=== PATIENT | male | born 1970 | race Caucasian/White ===

== ENCOUNTER 2020-03-13 11:19 | Outpatient (REF) | payer OTHER, SELFPAY ==
--- NOTE | 2020-03-13 11:24 | XR_ITS ---
EXAMINATION: XR CHEST CLINICAL INFORMATION: Covid 19 COMPARISON: None TECHNIQUE: 2 views of the chest were obtained. FINDINGS: No significant abnormality is noted involving the heart, lungs, mediastinum, bony thorax or soft tissues. XR/XR chest 2V IMPRESSION: No significant acute parenchymal disease appreciated.
== END 2020-03-13 11:20 | disposition home or self-care (01) ==
LOC: HO.HMGCX 11:19
PROVIDERS: PCP Nurse Practitioner Family; Visit Provider Nurse Practitioner Family
DX: R05 Cough (principal); U07.1 COVID-19
CPT/HCPCS: 71046

== ENCOUNTER 2020-03-18 14:58 | Outpatient (REF) | payer OTHER, SELFPAY ==
--- NOTE | ~2020-03-18 | XR_ITS ---
EXAMINATION: XR HIP, LEFT CLINICAL INFORMATION: Pain left hip. COMPARISON: None TECHNIQUE: Two views of the left hip. FINDINGS: Bones and soft tissues are normal. No fracture. Alignment is anatomic. Hip joint space is maintained. XR/XR hip LT min 2V IMPRESSION: Unremarkable left hip exam.
== END 2020-03-18 14:59 | disposition home or self-care (01) ==
LOC: HO.HMGCX 14:58
PROVIDERS: PCP Nurse Practitioner Family; Visit Provider Nurse Practitioner Family
DX: M25.552 Pain in left hip (principal)
CPT/HCPCS: 73502

== ENCOUNTER 2020-10-11 07:30 | Outpatient (REF) | payer OTHER, SELFPAY ==
[2020-10-11 11:28] LABS: Glucose Urine UA NEG (NEG); Leukocyte Esterase Urine NEG (NEG); Nitrite Urine NEG (NEG); PH 5.5 (5.0-8.0); Urine Blood NEG (NEG); Urine Ketones NEG (NEG); Urine Protein NEG (NEG-TRACE)
[2020-10-11 11:31] LABS: Appearance Urine CLEAR; Color Urine YELLOW
[2020-10-11 12:01] LABS: Alanine Aminotransferase 15 U/L (0-40); Albumin Level 4.1 g/dL (3.5-5.0); Alkaline Phosphatase 67 U/L (39-117); Anion Gap 13 (12-20); Aspartate Amino Transferase 13 U/L (5-37); Bilirubin Total 0.9 mg/dL (0.0-1.0); Blood Urea Nitrogen 20 mg/dL (9-16); Calcium 9.1 mg/dL (8.4-10.2); Carbon Dioxide 25 mmol/L (22-29); Chloride 106 mmol/L (96-108); Cholesterol 145 mg/dL; Estimated Glomerular Filt Rate > 60; Glucose Fasting 81 mg/dL (60-99); HDL Cholesterol 40 mg/dL; LDL Cholesterol Calculated 71 mg/dl; Potassium 3.7 mmol/L (3.3-5.1); Sodium 140 mmol/L (135-145); Total Protein 6.1 g/dL (6.5-8.0); Triglycerides 170 mg/dL
[2020-10-11 12:02] LABS: TSH reflex Free T4 2.32 uIU/mL (0.32-4.0)
== END 2020-10-11 07:31 | disposition home or self-care (01) ==
LOC: HO.HMGCLDS 07:30
PROVIDERS: PCP Nurse Practitioner Family; Visit Provider Nurse Practitioner Family
DX: N20.0 Calculus of kidney (principal); R10.9 Unspecified abdominal pain
CPT/HCPCS: 36415; 80053; 80061; 81003; 84443

== ENCOUNTER 2021-05-20 08:28 | Day surgery (SDC) | payer OTHER, SELFPAY ==
[2021-05-20 08:39] VITALS: BP 134/82; PULSE 79; RESP 16; TEMP 36.6; O2SAT 99; BMI 36.4
--- NOTE | 2021-05-20 09:56 | HO.ANESPROP2 ---
[facility] Active Problems Active Problems: All Active Problems (Updated 05/14/21 @ 13:45 by Lety Quiroz, RN) Cough in adult (Acute) Left hip pain (Acute) Kidney stones (Acute) Flank pain (Acute) Lower back pain (Acute) Physical exam (Acute) Screening PSA (prostate specific antigen) (Acute) HTN (hypertension) (Acute) COVID-19 (Acute) Past Medical History Medical History (Updated 05/14/21 @ 13:45 by Lety Quiroz RN) COVID-19 HTN (hypertension) Ulcerative colitis Family History Family history of problems with anesthesia: No Surgical History Surgical History (Updated 04/14/21 @ 10:51 by Lety Quiroz RN) H/O colonoscopy H/O medial meniscus repair of right knee History of Problems with Anesthesia: No Social History Social History Housing: House Alcohol intake: never Patient Tobacco Use Status: Never used Tobacco e-Cigarette/Vaping Use: Never Used Second Hand Smoke Exposure: No Use of substances other than those prescribed or required for medical reasons: No Advance Directives: No Advance Directives Information Provided: Yes Recently lost weight without trying: No service: No Current occupational status: employed Current occupation: [employer] Current occupational exposures/hazards: Yes Meds Allergies Allergy/AdvReac Type Severity Reaction Status Date / Time No Known Allergies Allergy Verified 05/14/21 13:39 Exam Exam Date and Time: May 20, 2021 0956 Height,Weight and Vital Signs: Height 5 ft 9 in Weight 112.037 kg Last Vital Signs Temp 97.8 F 05/20/21 08:39 Pulse 79 05/20/21 08:39 Resp 16 05/20/21 08:39 BP 134/82 05/20/21 08:39 Pulse Ox 99 05/20/21 08:39 Airway Mallampati Class: II TM Dist: >3cm Neck ROM: Full Assessment and Plan Assessment Anesthesia Assessment: Anesthesia Plan Discussed and Chart Reviewed Final Anesthetic Review Family History of Problems with Anesthesia: No History of Problems with Anesthesia: No NPO: Yes ASA Class: II Final Preanesthetic Review: No Changes in Pt Med Stat, Meds/Allgs Chart Reviewed, Consent Obtained/Reviewed and Anes Risks/Benef Reviewed Patient Risk: Low Procedure Risk: Low Anesthetic Plan Anesthetic Plan: MAC: Disposition: Standard PACU
[2021-05-20 10:38] VITALS: BP 106/77; PULSE 84; RESP 14; TEMP 36.6; O2SAT 96
--- NOTE | 2021-05-20 10:38 | MHC.SHP ---
Pre-Procedural Eval Section A Date of Service: 05/20/21 Section B Chief Complaint: Left sided colitis without complications Details of Present Illness: see h and p no changes Relevant Family History (Specify if Yes): No Relevant Social History: None Present Medications: see Short Stay Collaborative assessment Medical History: No relevant PMH Allergies: Allergies Allergy/AdvReac Type Severity Reaction Status Date / Time No Known Allergies Allergy Verified 05/14/21 13:39 Review of Systems Sugical H&P ROS: Negative: Constitution, Cardiovascular, Respiratory, Neurological, Psychiatric, Hem-Onc, Allergic/Immunologic, Gastrointestinal, Genitourinary, Musculoskeletal, Integumentary, Endocrine and Eyes/Ears/Nose/Throat Exam Surgical H&P Exam: Normal: HEENT, Normal: Heart, Normal: Lungs, Normal: Extremities, Normal: Abdomen, Normal: Skin and Normal: Neurological Plan I have reviewed the history and physical and performed a pertinent physical examination on my patient. No changes have occurred unless specified.
[2021-05-20 10:53] VITALS: BP 128/79; PULSE 81; RESP 18; TEMP 36.1; O2SAT 97
--- NOTE | 2021-05-20 11:15 | OP_ITS ---
SURGEON: Amari Anne MD INDICATIONS: Ulcerative colitis. PREOPERATIVE DIAGNOSIS: POSTOPERATIVE DIAGNOSIS: PROCEDURE PERFORMED: Colonoscopy to the terminal ileum with biopsy. ESTIMATED BLOOD LOSS: COMPLICATIONS: ANESTHESIA: ASSISTANTS: SPECIMENS: MEDICATIONS: Monitored anesthesia care. DESCRIPTION OF PROCEDURE: History and physical performed. The risks and benefits of the procedure were explained to the patient. Informed consent was obtained. The patient was placed in the left lateral decubitus position. A digital rectal exam was performed and was found to be normal. The Olympus pediatric videocolonoscope was introduced into the rectum and advanced to the cecum. The cecum was identified by transillumination, palpation, and identification of ileocecal valve. Examination was performed. The scope was removed. He tolerated the procedure well and was taken to recovery in stable condition. FINDINGS: The terminal ileum was normal. Visualized colonic mucosa was normal. Changes of colitis were noted in the left colon, mainly in the sigmoid, extending from the rectum to about 20 to 30 cm changes included superficial ulceration, erythema, edema, and loss of vascular pattern. Biopsies were obtained from throughout the colon approximately every 10 cm in all 4 quadrants. There was a rectal polyp measuring approximately 7 mm which were removed with a cold snare. Retroflexed examination was normal. IMPRESSION: Ulcerative colitis, colon polyp. RECOMMENDATION: Follow up the biopsy results. MD PANFILO Perea/NAVDEEPL / [id number]
== END 2021-05-20 11:20 | disposition home or self-care (01) ==
PROVIDERS: PCP Nurse Practitioner Family; Visit Provider Internal Medicine Gastroenterology
PROC: 0DJD8ZZ Inspection of Lower Intestinal Tract, Via Natural or Artificial Opening Endoscopic (ICD-10-PCS; CPT 45378; principal; 2021-05-20 09:30)
DX: K51.50 Left sided colitis without complications (principal); K62.1 Rectal polyp; K62.89 Other specified diseases of anus and rectum; I10 Essential (primary) hypertension; Z79.899 Other long term (current) drug therapy; Z87.11 Personal history of peptic ulcer disease; Z98.890 Other specified postprocedural states
CPT/HCPCS: 45380; 88305

== ENCOUNTER 2023-03-29 16:16 | Outpatient (AMB) | payer OTHER, SELFPAY ==
[2023-03-29 16:21] VITALS: BP 118/72; PULSE 72; O2SAT 99; BMI 37.4
--- NOTE | 2023-03-29 16:21 | A.OFFPC_ITS ---
Vital Signs 03/29/23 16:21 Height 5 ft 9 in Weight 253 lb 6 oz BMI 37.4 BP 118/72 Blood Pressure Location Lt brachial Position Sitting Pulse 72 Pulse Source Pulse Oximeter Pulse Oximetry (%) 99 Oxygen Delivery Method Room Air Intake Visit Reasons: Physical exam Intake Note: pt is here for physical exam, patient states there are no concerns. patient is due for colonoscopy every 5 years and last colonoscopy was 2018 Duplex Trimmer Required: No Allergies No Known Allergies Allergy (Verified 03/29/23 18:03) Medication List - Last Reconciled 03/29/23 by TRACI Akers lisinopril 5 mg PO DAILY 90 days omeprazole 20 mg PO DAILY ondansetron 8 mg PO Q12H PRN 15 days Tobacco use date assessed: 03/29/23 Dental Screening Dental Screen Date: 03/29/23 Did you have a dental visit in the last 12 months?: Yes Did you have a dental problem in the last 6 months where you did not have access to dental care?: No Was dental information given to patient?: Patient has dentist HPI Physical exam HPI Details Pt is here for a PE. Will order labs. Colon screen is up to date, sees GI on a regular basis due to UC. Due for PSA, will order. Denies dribbling with urination, weak stream, and frequent nocturia. He does have a Hx of low T, will recheck T levels. [facility] Medical History HTN (hypertension) Ulcerative colitis COVID-19 Surgical History H/O colonoscopy H/O medial meniscus repair of right knee Social History Housing: House Alcohol intake: never Patient Tobacco Use Status: Never used Tobacco e-Cigarette/Vaping Use: Never Used Second Hand Smoke Exposure: No service: No Current occupational status: employed Current occupation: [employer] Current occupational exposures/hazards: Yes Cognitive needs: No Hearing needs: No Vision needs: No Questionnaire PHQ-9 Over the last 2 weeks, how often have you been bothered by any of the following problems? 1. Little interest or pleasure in doing things: not at all 2. Feeling down, depressed, or hopeless: not at all 3. Trouble falling or staying asleep, or sleeping too much: not at all 4. Feeling tired or having little energy: not at all 5. Poor appetite or overeating: not at all 6. Feeling bad about yourself - or that you are a failure or have let yourself or your family down: not at all 7. Trouble concentrating on things, such as reading the newspaper or watching television: not at all 8. Moving or speaking so slowly that other people could have noticed. Or the opposite - being so fidgety or restless that you have been moving around a lot more than usual: not at all 9. Thoughts that you would be better off or of hurting yourself in some way: not at all Total score: 0 Depression Screening Interpretation: Negative Depression Screening Done: Yes 46166 - PHQ-9 Billing: Yes Source: Developed by Drs. Jacobo Fregoso, Arabella Yi, Shyam Colin and colleagues, with an educational penny from [employer]. Thrive Questionnaire Date Thrive assessed: 03/29/23 I am a: Patient What is your living situation today?: I have a steady place to live Within the past 12 months, did the food you bought not last and you didn't have the money to get more?: Never true Within the past 12 months, did you worry whether your food would run out before you got money to buy more?: Never true Do you have trouble paying for medicines?: No Do you have trouble getting transportation to medical appointments?: No Do you have trouble paying your heating and electricity bill?: No Do you have trouble taking care of your child, family member or friend?: No Do you have trouble with day-to-day activities such as bathing, preparing meals, shopping, managing finances, etc.?: No Are you currently unemployed and looking for a job?: No Are you interested in more education?: No Please select the resources that you would like help with: None Currently or been in a relationship where the following occur: no concerns reported THRIVE Score: 0 AUDIT C Alcohol Use Questionnaire (AUDIT-C) 1. How often do you have a drink containing alcohol?: Never 3. How often do you have six or more drinks on one occasion?: Never Total Score: 0 Score Reviewed/Action Taken: Yes ANDREA-7 AMB Questionnaire ANDREA-7 Date ANDREA - 7 assessed: 03/29/23 Feeling nervous, anxious, or on edge: 0 = Not at all Not being able to stop or control worryin = Not at all Worrying too much about different things: 0 = Not at all Trouble relaxin = Not at all Being so restless that it is hard to sit still: 0 = Not at all Becoming easily annoyed or irritable: 0 = Not at all Feeling afraid as if something awful might happen: 0 = Not at all Total ANDREA-7 score (0-4 normal; 5-9 mild; 10-14 moderate; 15-21 severe): 0 Source: Developed by Drs. Jacobo Fregoso, Arabella Yi, Shyam Colin and colleagues, with an educational penny from [employer]. ANDREA-7 Assessment Billing ANDREA-7 Assessment Tool: ANDREA-7 Assessment 90221 Review of Systems Const Denies chills and Denies fever(s) Eyes Denies blurry vision ENT Denies vertigo, Denies dizziness and Denies sore throat Card Denies chest pain at rest, Denies chest pain with activity, Denies diaphoresis, Denies dyspnea and Denies dyspnea on exertion Resp Denies cough, Denies dyspnea, Denies dyspnea on exertion and Denies wheezing GI Denies abdominal pain, Denies melena, Denies hematochezia, Denies constipation, Denies diarrhea and Denies loose stools Denies hematuria Musc Denies numbness and Denies tingling Skin/Breast Denies lesions Neuro Denies vertigo, Denies dizziness, Denies numbness and Denies tingling Psych Denies anxiety, Denies depression, Denies homicidal ideation, Denies suicidal ideation and Denies other (substance abuse) Aller/Immun Denies wheezing Physical exam (Primary Care) Vital Signs: Last Vital Signs Pulse 72 03/29/23 16:21 BP 118/72 03/29/23 16:21 Pulse Ox 99 03/29/23 16:21 Oxygen Delivery Method Room Air 03/29/23 16:21 BMI result Body Mass Index 37.4 Tobacco/Smoking Status: Tobacco use Status Tobacco use date assessed 03/29/23 03/29/23 16:28 Patient Tobacco Use Status Never used Tobacco 03/29/23 16:28 e-Cigarette/Vaping Use Never Used 03/29/23 16:28 PHQ-9: PHQ-9 Score PHQ-9: Total score 0 03/29/23 17:06 Depression Screening Interpretation: Negative Thrive Assessment: Date of Thrive Assessment Date Thrive assessed 03/29/23 03/29/23 16:28 Currently or been in a relationship where the following occur: no concerns reported Const General: cooperative Nutritional Appearance: well nourished Orientation/consciousness: patient oriented x3 HENMT Head: Yes normal to inspection, Yes normocephalic and Yes atraumatic Ears: TM's normal bilaterally Eyes General: appearance normal, both eyes and all related structures Alignment and Position: alignment normal and position normal Neck Neck: Yes normal visual inspection and Yes no lymphadenopathy Thyroid: Thyroid normal Resp Effort & Inspection: normal respiratory effort Auscultation: clear to auscultation bilaterally Cardio Rate: regular rate Rhythm: regular rhythm Heart sounds: S1 normal heart sound present, S2 normal heart sound present and no murmurs GI Other: small umbilical hernia noted Palpation (GI): Soft to palpation and nontender Auscultation: normal bowel sounds Male General Exam: Yes normal external exam Penis: normal penis Scrotum: scrotum normal, testes descended bilaterally and no inguinal hernias Testes: no testicular mass Skin Rashes: no rashes Neuro General: patient oriented x3, moves all extremities, no focal motor deficits and deep tendon reflexes 2+ bilaterally Romberg Test: Negative Psych Appearance: grossly normal Mental Status: mental status grossly normal Speech and movement: Normal speech and movement present Affect: normal affect Attitude: cooperative Thought process: Normal thought process present Thought content: Normal thought content present Insight: Good insight present (Psych) Judgement: Good judgement present (Psych) Assessment and Plan Assessment & Plan (1) Physical exam: Code(s): Z00.00 - Encounter for general adult medical examination without abnormal findings Plan: labs (2) Screening PSA (prostate specific antigen): Code(s): Z12.5 - Encounter for screening for malignant neoplasm of prostate Plan: lab (3) Low testosterone: Code(s): R79.89 - Other specified abnormal findings of blood chemistry Plan: lab ordered Orders: Orders TSH reflex Free T4 Today Z00.00 - Encounter for general adult medical examination without abnormal findings UA CC w/rflx Micro + Cult Today Z00.00 - Encounter for general adult medical examination without abnormal findings Prostate Specific Antigen Scr Today Z12.5 - Encounter for screening for malignant neoplasm of prostate Vitamin D 25-OH Total Today Z00.00 - Encounter for general adult medical examination without abnormal findings Complete Blood Count Auto Diff Today Z00.00 - Encounter for general adult medical examination without abnormal findings Comprehensive [place]. Panel Fast Today Z00.00 - Encounter for general adult medical examination without abnormal findings Lipid Panel Today Z00.00 - Encounter for general adult medical examination without abnormal findings Testosterone, Free/Total Today R79.89 - Other specified abnormal findings of blood chemistry Medications: New ondansetron 8 mg PO Q12H PRN 30 tabs 0RF nausea and vomiting 15 days Coding Level of Care Code Est Pt Prev Care 40-64y(63140) Diagnoses Physical exam Z00.00 Screening PSA (prostate specific antigen) Z12.5 Low testosterone R79.89 Additional Codes ANDREA-7 Assessment Billing - ANDREA-7 Assessment Tool: ANDREA-7 Assessment 76206 ([id number])
== END 2023-03-29 17:15 | disposition home or self-care (01) ==
PROVIDERS: PCP Nurse Practitioner Family; Visit Provider Nurse Practitioner Family
DX: Z00.00 Encounter for general adult medical examination without abnormal findings (principal); Z12.5 Encounter for screening for malignant neoplasm of prostate; R79.89 Other specified abnormal findings of blood chemistry
CPT/HCPCS: 99396

== ENCOUNTER 2024-04-25 07:35 | Day surgery (SDC) | payer OTHER, SELFPAY ==
--- OUTSIDE RECORDS SUMMARY | 2024-04-12 13:42 | XMS_ITS | Clinical Summary ---
Author Organization [facility] lin Address [address] [place] [address] Care Team Providers Care Alumni Coordinator Name Role Phone No, Pcp HHA Primary Care Provider Unavailabl e Allergies No known active allergies Medications No known medications Social History Tobacco Use Types Packs/Day Years Used Date Smoking Tobacco: Never Sex and Gender Information Value Date Recorded Sex Assigned at Not on file Legal Sex Male 10:59 AM EDT Gender Identity Not on file Sexual Orientation Not on file Last Filed Vital Signs Vital Sign Reading Time Taken Comments Blood Pressure 120/90 09/15/2015 1:05 PM EDT Pulse 98 09/15/2015 1:05 PM EDT Temperature 37.2 ??C (98.9 ??F) 09/15/2015 1:05 PM ED T Respiratory Rate 14 09/15/2015 1:05 PM EDT Oxygen Saturation 98% 09/15/2015 1:05 PM EDT Inhaled Oxygen Concentration - - Weight 118 kg (260 lb) 09/15/2015 1:05 PM EDT Height 175.3 cm (5' 9 ) 09/15/2015 1:05 PM EDT Body Mass Index 38.4 09/15/2015 1:05 PM EDT Plan of Treatment Health Maintenance Due Date Last Done Comments Colorectal Cancer: COLONOSCO PY Screening every 10 yrs (or Modifier) 1970 Depression: Screening Annual ly using PHQ-2/9 in Adults 18 yrs or above (or HM Modifier)([facility]) 1988 Hepatitis C Virus Infection in Adolescents and Adults: Screening (or Modifier) ([facility]) 1988 SDOH Screening Reminder: Marta santiago for all adults ([facility]) 1988 Tobacco Smoking Cessation: i n Adults excluding Women: Behavioral and Pharmacotherapy Interventions ([facility]) 1988 DTaP/Tdap/Td Vaccines ([facility]) (1 - Tdap) 1989 Lipid Screening: Every 5 yrs for Men aged 35+ (or HM Modifier) ([facility]) 2006 Colorectal Cancer Screening 45 -75 Yrs (or HM Modifier) 09/09/2015 Colorectal Cancer: FLEXIBLE SIGMOIDOSCOPY Screening every 5 yrs 09/09/2015 Colorectal Cancer: Fecal Immunochemical Test (FIT) Annually [facility] 09/09/2015 Colorectal Cancer: High-sens itivity gFOBT Screening Annually [facility] 09/09/2015 Colorectal Cancer: Stool Col oguard Screening every 3 yrs 09/09/2015 Colorectal Cancer:CT Colonog tom Screening every 5 yrs 09/09/2015 Zoster/Shingles Vaccine Seri es Screening: Adults aged 18+ yrs (or HM Modifiers)([facility] ) (1 of 2) 2020 Flu Vaccination: Yearly for ages 18mos through 64 years (or Modifier)([facility] ) 09/09/2023 COVID-19 Vaccine Screening: Initial Series and Booster Status ([facility]) (2023- season) 2023 Pneumococcal Vaccination Scr eening: Pts 0-19 & 19-64 yrs of age ([facility] ) Aged Out No longer eligible based on patient's age to complete this topic Medical Devices Not on file Insurance Care Teams Alumni Coordinator Relationship Specialty Start Date End Date No, Pcp, HHA N/A Do not use PCP - General 09/15/15
--- OUTSIDE RECORDS SUMMARY | 2024-04-12 13:42 | XMS_ITS ---
Author Organization [facility] Address [address] [place] [phone] Care Team Providers Care Machine I Trimmer Name Role Phone [place] Primary Care Provider Amari Chun Jr REASON FOR VISIT colonoscopy Encounters Encounter Location Date Provider Diagnosis [facility] [address] [facility] [address] [place] [phone] 02/24/2024 Amari Anne Jr Plan Of Treatment Next Appt Details Provider Name:Amari yepez Jr, 04/25/2024 09:00:00 AM, [address] [place] [address] , [place], [place], [phone], Progress Notes * FLAVIA MOSELEY ADOB: [birth year] (53 yo M)Acc No.[id number]:02/24/2024 Patient:?FLAVIA MOSELEY :1970???Age:53 Y???Sex:Male Address:[address], [place] [address] * true * Date:? Generated for Carly cuellar/Margarita/eTransmitting on:?04/12/2024 01:41 PM EST
--- OUTSIDE RECORDS SUMMARY | 2024-04-12 13:42 | XMS_ITS ---
[facility] Address [address] [place] [address] Care Team Providers Care Service Tech Name Role Phone NEW BOOTH Primary Care Provider Amari Chun Jr Unavailable [phone] Allergies No Known Allergies REASON FOR VISIT Patient presents today for ulcerative colitis Medications Medication SIG (Take, Route, Frequency, Duration) Notes Start Date End Date Status Lisinopril 5 MG Oral for 90 Ac tive MiraLax (colon prep) 17 GM/SCOOP mixed with Gatorade or Crystal Light Orally begin at 5:00 p.m. the day before the procedure for 1 day 07/29/2023 Active Mesalamine 1000 mg _insert 1 SUPPOSITOR Y RECTALLY ONCE DAILY AT BEDTIME for 30 days Active Social History Alcohol Screen Question Answer Notes Did you have a drink contain ing alcohol in the past year? Yes How often did you have a dri nk containing alcohol in the past year? 2 to 4 times a month (2 points) How many drinks did you have on a typical day when you were drinking in the past year? 3 or 4 drinks (1 point) How often did you have 6 or more drinks on one occasion in the past year? Never (0 point) Points 3 Interpretation Negative Vital Signs Temperature 97.5 degrees Fahrenheit 07/29/19 24 Blood pressure systolic 000 mm Hg 07/29/19 24 Blood pressure diastolic null mm Hg 024 Height 69 in 07/29/2023 Weight 254 lb 2 oz lbs 07/29/2023 BMI 37.52 kg/m2 07/29/2023 Encounters Encounter Location Date Provider Diagnosis [facility] [address] [place] [address] 07/29/2023 Amari Anne Jr Ulcerative colitis, left sided, without complications K51.50 Assessments Encounter Date Diagnosis (ICD Code) Assessment Notes Treatment Notes Treatment Clinical Notes Section Notes 07/29/2023 Ulcerative colitis, left sided, without complications (ICD-10 - K51.50) We discussed ulcerative colitis today. We recommended he continue mesalamine suppositories. He will be scheduled for followup colonoscopy in February or March. [facility] paperwork will be completed. Plan Of Treatment Medication Medication Name Sig Start Date Stop Date Notes MiraLax (colon prep) 17 GM/SCOOP mixed with Gatorade or Crystal Light Orally begin at 5:00 p.m. the day before the procedure for 1 day 07/29/2023 Future Test Test Name Order Date COLONOSCOPY 07/29/2023 Next Appt Details Follow Up: 1 Year, Reason: Provider Name:Amari yepez Jr, 04/25/2024 09:00:00 AM, [address] [place] [address] , [place], [place], [phone], Progress Notes * JOHNATHAN MOSELEY ADOB: 1 (52 yo M)Acc No.[id number]:07/29/2023 Progress Notes Patient:?JOHNATHAN MOSELEY Provider:?Amari Anne MD :1970???Age:52 Y???Sex:Male Nithin e:07/29/2023 Address:[address] [place], [place] [id number] Pcp:NEW BOOTH Subjective: * Chief Complaints: * ???1. Patient presents today for ulcerative colitis. * HPI: ???New symptom(s):? Johnathan is a pleasant 52-year-old man seen today in followup of ulcerative colitis, left-sided. We saw him last, he's been doing well. He has no complaints of rectal bleeding. He continues on Canasa suppositories at night. Bowel movements are generally occurring once per day. He last underwent colonoscopy in 2021 which showed rectosigmoid colitis and a hyperplastic colon polyp. We reviewed this today. He did require a course of prednisone following the procedure but has done well since. He is scheduled for hip replacement later this month. * Medical History:?ulcerative colitis, diagnosed 1995, left-sided disease, current therapy Canasa suppositories, Hx of peptic ulcer disease, Colonoscopy 05/20/21 left-sided disease, followup in 2-3 years., Traumatic fingertip amputation, Osteoarthritis. * Surgical History:?cyst remov al on stomach , Knee surgery right 2016, new hip left side hip replacement in August 05, 2023 . * Family History:?Father: jesus lozoya, diagnosed with HTN (hypertension).?Mother: alive.? no known hx of colon cancer, polyps or liver ds. * Social History:?Tobacco Use:?Tobacco Use/Smoking?Are you a: nonsmoker.?Drugs/Alcohol:?Alcohol Screen?Did you have a drink containing alcohol in the past year??Yes,?How often did you have a drink containing alcohol in the past year??2 to 4 times a month (2 points),?How many drinks did you have on a typical day when you were drinking in the past year??3 or 4 drinks (1 point),?How often did you have 6 or more drinks on one occasion in the past year??Never (0 point),?Points?3,?Interpretation?Negative.?Miscellaneous:?Marital status: . Occupation: general maintanence/officer. * Medications:?Taking Mesalami ne 1000 mg Suppository _insert 1 SUPPOSITORY RECTALLY ONCE DAILY AT BEDTIME , Taking Lisinopril 5 MG Tablet Oral , Discontinued MiraLax (colon prep) 17 GM/SCOOP Powder mixed with Gatorade or Crystal Light Orally begin at 5:00 p.m. the day before the procedure, Discontinued predniSONE 10 MG Tablet 4 tablets daily for 7 days then taper by 10 mg weekly. Orally , Discontinued Omeprazole 20 MG Tablet Delayed Release 1 tablet 30 minutes before morning meal Orally Once a day, Medication List reviewed and reconciled with the patient * Allergies:?N.K.D.A. Objective: * Vitals:?Wt: 254 lb 2 oz, Ht: 69 in, BMI:37.52 Index, BP: 000//00, Temp: 97.5. * Examination: ???General Examination: ???On examination today, he appears well, skin is anicteric. Lungs are clear. Heart shows regular rate. Abdomen is soft without focal mass or tenderness. Extremities are without edema. Assessment: * Assessment: 1.?Ulcerative colitis, left sided, without complications - K51.50 (Primary)? We discussed ulcerative coli tis today. We recommended he continue mesalamine suppositories. He will be scheduled for followup colonoscopy in February or March. [facility] paperwork will be completed. Plan: * Treatment: * Procedure Codes:?3017F COLOR ECTAL CA SCREEN DOC REV, G9903 Pt scrn tbco id as non user, G9744 PATIENT NOT ELIG D/T ACTIVE DX HTN * Preventive Medicine:? ??Counseling:?Care goal follow-up plan:?Above Normal BMI Follow-up?Giving encouragement to exercise,?BMI management provided?Yes.? * Follow Up:?1 Year * * Sign off status: Completed true * Provider:?Amari Anne MD Date:?0 07/29/2023 Generated for [facility] polo/Margarita/eTransmitting on:?04/12/2024 01:42 PM EST History and Physical Notes * HPI (History of Present Illness) Category Sub-Category Detail Notes Category Not es New symptom(s) Johnathan is a p leasant 52-year-old man seen today in followup of ulcerative colitis, left-sided. We saw him last, he's been doing well. He has no complaints of rectal bleeding. He continues on Canasa suppositories at night. Bowel movements are generally occurring once per day. He last underwent colonoscopy in 2021 which showed rectosigmoid colitis and a hyperplastic colon polyp. We reviewed this today. He did require a course of prednisone following the procedure but has done well since. He is scheduled for hip replacement later this month. Examination Category Sub-Category Detail Notes Category Not es General Examination On exami nation today, he appears well, skin is anicteric. Lungs are clear. Heart shows regular rate. Abdomen is soft without focal mass or tenderness. Extremities are without edema.
--- OUTSIDE RECORDS SUMMARY | 2024-04-12 13:42 | XMS_ITS ---
Author Organization [facility] Address [address] [place] [phone] Care Team Providers Care Chef Name Role Phone ENW BOOTH Primary Care Provider Amari Chun Jr REASON FOR VISIT ulcerative colitis Encounters Encounter Location Date Provider Diagnosis [facility] Outpatient [address] [place] [phone] 03/28/2024 Amari Anne Jr Plan Of Treatment Next Appt Details Provider Name:Amari yepez Jr, 04/25/2024 09:00:00 AM, [address] [place] [address] , [place], [place], [phone], Progress Notes * FLAVIA MOSELEY ADOB: 1 (53 yo M)Acc No.[id number]:03/28/2024 COLON WITH MAC Patient:?FLAVIA MOSELEY Provider:?Amari Anne MD :1970???Age:53 Y???Sex:Male Nithin e:03/28/2024 Address:[address] [facility] [id number] Pcp:NEW BOOTH Subjective: * Chief Complaints: * ???1. Ulcerative colitis. * Medical History:? Objective: * Vitals:? Assessment: Plan: * Treatment: * * The named appointment provid er may or may not be the originator of this progress note, and it is not deemed complete until electronically signed by the appointment provider. Sign off status: Pending * Provider:?Amari Anne MD Date:?0 03/28/2024 Generated for Carly cuellar/Margarita/Anthony on:?04/12/2024 01:42 PM EST
--- OUTSIDE RECORDS SUMMARY | 2024-04-12 13:42 | XMS_ITS | Patient Health Record ---
Author Organization [facility] Address [address] [place] [address] Care Team Providers Care Casino Porter Name Role Phone NEW BOOTH Primary Care Provider Amari Chun Jr Unavailable Allergies No Known Allergies Reason For Referral No Information Medications Medication SIG (Take, Route, Frequency, Duration) Notes Start Date End Date Status Lisinopril 5 MG Oral for 90 Ac tive MiraLax (colon prep) 17 GM/SCOOP mixed with Gatorade or Crystal Light Orally begin at 5:00 p.m. the day before the procedure for 1 day 07/29/2023 Active Mesalamine 1000 MG _INSERT 1 SUPPOSITOR Y RECTALLY ONCE DAILY AT BEDTIME for 90 Active Immunizations Vaccine Route Administration Date Status Comme nts Influenza Unknown 12/01/2022 Administered Influenza Unknown 07/27/2019 Refused Social History Alcohol Screen Question Answer Notes [...] Never (0 point) Points 3 Interpretation Negative Problems Problem Type SNOMED Code ICD Code Onset Dates Problem Status W/U Status Risk Notes Problem [id number] Ulcerative colitis, left sided, without complications (K51.50) Active confirmed Vital Signs Temperature 97.5 degrees Fahrenheit 07/29/2023 Blood pressure diastolic null mm Hg 07/29/2023 Height 69 in 07/29/2023 Blood pressure systolic 000 mm Hg 07/29/2023 Weight 254 lb 2 oz lbs 07/29/2023 BMI 37.52 kg/m2 07/29/2023 Encounters Encounter Location Date Provider Diagnosis [facility] [address] [place] [phone] 07/29/2023 Amari Anne Jr Ulcerative colitis, left sided, without complications K51.50 [facility] [address] [place] [phone] 04/23/2023 Amari Anne Jr [facility] [address] [place] [phone] 02/24/2024 Amari Anne Jr Assessments Encounter Date Diagnosis (ICD Code) Assessment Notes Treatment Notes Treatment Clinical Notes Section Notes 07/29/2023 Ulcerative colitis, left sided, without complications (ICD-10 - K51.50) We discussed ulcerative colitis today. We recommended he continue mesalamine suppositories. He will be scheduled for followup colonoscopy in February or March. [facility] paperwork will be completed. Plan Of Treatment Future Test Test Name Order Date COLONOSCOPY 11/10/2013 COLONOSCOPY 10/21/2017 COLONOSCOPY 10/21/2020 COLONOSCOPY 07/29/2023 Next Appt Details Provider Name:Amari yepez , 04/25/2024 09:00:00 AM, [address] [place] [address] , [place], [place], [phone], Insurance Providers Payer Name Payer Address Payer Phone Subscriber Number Group Number Insured Name Patient Relationship to Insured Coverage Start Date Coverage End Date [facility] [address] [place] [phone] [id number] MOSELEY, FLAVIA Self - patient is the insured Medical (General) History Medical History History ICD Code ulcerative colitis, diagnose d 1995, left-sided disease, current therapy Canasa suppositories hx of peptic ulcer disease colonoscopy 05/20/21 left-sided disease, followup in 2-3 years. Traumatic fingertip amputation Osteoarthritis Surgical History Surgery Date(Month/Year) cyst removal on stomach Knee surgery right 2017 new hip left side hip replacement in Jul
--- OUTSIDE RECORDS SUMMARY | 2024-04-12 13:42 | XMS_ITS | Patient Health Record ---
Author Organization [facility] Address [address] [place] [address] Care Team Providers Care Supervisor Bleach Plant Name Role Phone Easton Zaman Primary Care Provider Unav ailable Arpita Souza Unavailable [phone] Allergies No Known Allergies Reason For Referral No Information Medications Medication SIG (Take, Route, Fr equency, Duration) Notes Start Date End Date Status Medrol 4 MG as directed Orally 10/28/2020 Not-Taking Mesalamine Not-Takin g Immunizations Vaccine Route Administration Date Status Comme nts COVID-19 Moderna Vaccine Unknown 06/20/2020 Administere d 05/13/20 Social History Tobacco Use: Social History Observation Description Date Details (start date - stop date) Never Smoker NA - NA Tobacco Use/Smoking Question Answer Notes Are you a: nonsmoker Additional Findings: Tobacco Non-User Aggressive non-smoker Alcohol Screen Question Answer Notes Did you have a drink containing alcohol in the p ast year? No Points 0 Interpretation Negative Tobacco use other than smoking: Question Answer Notes Are you an other tobacco user? 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 Plan Of Treatment Pending Test Test Name Order Date X ray : Foot, right 3V 10/28/2020 Insurance Providers Payer Name Payer Address Payer Phone Subscriber Number Group Number Insured Name Patient Relationship to Insured Coverage Start Date Coverage End Date [facility] [address] [place] [address] [phone] [id number] WilkinsJohnathan stinson Self - patient is the insured Medical (General) History Medical History History ICD Code Arthritis Back,Hip,and Knee pain Crohns disease Psoriasis Sinus conditions Surgical History Surgery Date(Month/Year) knee surgery, right
[2024-04-21 09:30] VITALS: BMI 37.5
[2024-04-25 08:23] VITALS: BMI 34.2
[2024-04-25 08:24] VITALS: BP 124/80; PULSE 67; RESP 16; TEMP 36.3; O2SAT 98
--- NOTE | 2024-04-25 08:49 | HO.ANESPROP2 ---
[facility] Active Problems Active Problems: All Active Problems Encounter for blood typing (Acute) Low testosterone (Acute) Bronchitis (Acute) Chronic hip pain (Acute) HTN (hypertension) (Acute) Screening PSA (prostate specific antigen) (Acute) Physical exam (Acute) Lower back pain (Acute) Flank pain (Acute) Kidney stones (Acute) Left hip pain (Acute) Cough in adult (Acute) COVID-19 (Acute) Past Medical History Medical History Osteoarthritis Traumatic amputation of fingertip Peptic ulcer HTN (hypertension) Ulcerative colitis COVID-19 Family History Family history of problems with anesthesia: No Surgical History Surgical History History of total left hip replacement H/O colonoscopy H/O medial meniscus repair of right knee History of Problems with Anesthesia: No Social History Social History Housing: House Alcohol intake: never Patient Tobacco Use Status: Never used Tobacco e-Cigarette/Vaping Use: Never Used Second Hand Smoke Exposure: No service: No Current occupational status: employed Current occupation: [employer] Current occupational exposures/hazards: Yes Cognitive needs: No Hearing needs: No Vision needs: No Meds Allergies Allergy/AdvReac Type Severity Reaction Status Date / Time No Known Allergies Allergy Verified 03/29/23 18:03 Active Medications: Current Medications Lactated Ringer's (Lr) 1,000 mls @ 100 mls/hr IVCONT .Q10H LISA Home Medications ?Medication ?Instructions ?Recorded ?Confirmed ?Last Taken ?Type mesalamine 1,000 mg rectal 1,000 mg MD BEDTIME 04/21/24 04/25/24 Unknown History suppository omeprazole 20 mg PO PRN reflux 04/25/24 Unknown History Exam Height,Weight and Vital Signs: Height 5 ft 9 in Weight 105.2 kg Last Vital Signs Temp 97.4 F 04/25/24 08:24 Pulse 67 04/25/24 08:24 Resp 16 04/25/24 08:24 BP 124/80 04/25/24 08:24 Pulse Ox 98 04/25/24 08:24 O2 Del Method Room Air 04/25/24 08:24 Airway Mallampati Class: III TM Dist: >3cm Neck ROM: Full Loose/Missing/Broken Teeth: No Heart: RRR Lungs: CTA Assessment and Plan Assessment Anesthesia Assessment: Anesthesia Plan Discussed and Chart Reviewed Final Anesthetic Review Family History of Problems with Anesthesia: No History of Problems with Anesthesia: No NPO: Yes ASA Class: II Final Preanesthetic Review: Meds/Allgs Chart Reviewed, Consent Obtained/Reviewed and Anes Risks/Benef Reviewed Patient Risk: Low Procedure Risk: Low Anesthetic Plan Anesthetic Plan: MAC: Disposition: Standard PACU
--- NOTE | 2024-04-25 08:58 | MHC.SHP ---
Pre-Procedural Eval Section A - 24 Hr Update-Section A only Date of Service: 04/25/24 Section B - Complete if H&P > 30 days Chief Complaint: Left sided colitis without complications Details of Present Illness: see H&P no changes Relevant Family History (Specify if Yes): No Relevant Social History: None Present Medications: see Short Stay Collaborative assessment Medical History: No relevant PMH History of Previous Operations: No relevant previous surgery Allergies: Allergies Allergy/AdvReac Type Severity Reaction Status Date / Time No Known Allergies Allergy Verified 03/29/23 18:03 Review of Systems Sugical H&P ROS: Negative: Constitution, Cardiovascular, Respiratory, Neurological, Psychiatric, Hem-Onc, Allergic/Immunologic, Gastrointestinal, Genitourinary, Musculoskeletal, Integumentary, Endocrine and Eyes/Ears/Nose/Throat Exam Surgical H&P Exam: Normal: HEENT, Normal: Heart, Normal: Lungs, Normal: Extremities, Normal: Abdomen, Normal: Skin and Normal: Neurological Plan Diagnosis/Plan: Unchanged I have reviewed the history and physical and performed a pertinent physical examination on my patient. No changes have occurred unless specified. Time Spent With Patient Time: Total time managing care of this patient today ____ minutes.
[2024-04-25 09:42] VITALS: BP 104/61; PULSE 72; RESP 18; TEMP 37; O2SAT 99
[2024-04-25 09:57] VITALS: BP 114/76; PULSE 74; RESP 18; TEMP 37.2; O2SAT 99
--- NOTE | 2024-04-25 10:45 | OP_ITS ---
DATE OF SERVICE: 04/25/2024 SURGEON: Amari Anne MD INDICATIONS: Left-sided ulcerative colitis. PREOPERATIVE DIAGNOSIS: POSTOPERATIVE DIAGNOSIS: PROCEDURE PERFORMED: Colonoscopy to the terminal ileum with biopsy. ESTIMATED BLOOD LOSS: COMPLICATIONS: ANESTHESIA: Monitored anesthesia care. ASSISTANTS: SPECIMENS: DESCRIPTION OF PROCEDURE: A history and physical performed. The risks and benefits of the procedure were explained to the patient. Informed consent was obtained. The patient was placed in the left lateral decubitus position. A digital rectal exam was performed and was found to be normal. The Olympus pediatric video colonoscope was introduced into the rectum and advanced to the cecum. The cecum was identified by transillumination, palpation, and identification of ileocecal valve. Examination was performed. The scope was removed. He tolerated the procedure well and was taken to recovery in stable condition. FINDINGS: The terminal ileum was normal. This was biopsied. Visualized colonic mucosa was normal. There appeared to be inactive colitis involving the rectum and the sigmoid extending to about 35-40 cm. There was no active colitis. Biopsies were obtained from throughout the colon in all 4 quadrants approximately every 10 cm. In the cecum, there was a less than 5 mm sessile polyp, which was removed with biopsy forceps. No other polyps were identified. Retroflexed examination showed some small internal hemorrhoids. IMPRESSION: 1. Ulcerative colitis, left-sided. 2. Colon polyp. RECOMMENDATION: Follow up with the biopsy results. MD PANFILO Perea/NAVDEEPL / [id number]
== END 2024-04-25 10:13 | disposition home or self-care (01) ==
PROVIDERS: PCP Nurse Practitioner Family; Visit Provider Internal Medicine Gastroenterology
PROC: 0DJD8ZZ Inspection of Lower Intestinal Tract, Via Natural or Artificial Opening Endoscopic (ICD-10-PCS; CPT 45378; principal; 2024-04-25 09:00)
DX: K51.50 Left sided colitis without complications (principal); D12.0 Benign neoplasm of cecum; K64.8 Other hemorrhoids; Z87.11 Personal history of peptic ulcer disease; I10 Essential (primary) hypertension; M19.90 Unspecified osteoarthritis, unspecified site; Z79.899 Other long term (current) drug therapy; Z96.642 Presence of left artificial hip joint
CPT/HCPCS: 45380; 88305; J2003; J2704